=== PATIENT | female | born 1960 | race Caucasian/White ===

== ENCOUNTER 2019-02-01 11:46 | Observation (INO) | payer MEDICAID ==
[2019-02-01 12:53] LABS: BASO % 0.5 % (0.0-2.0); EOS % 0.6 % (0.0-4.0); HEMOGLOBIN 13.3 g/dL (11.0-16.0); LYMPH # 1.7 K/uL (1.0-4.3); MEAN CELL VOLUME 80.4 fL (81.0-99.0); MEAN CORPUSCULAR HGB CONC 33.6 g/dL (33.0-37.0); MEAN PLATELET VOLUME 9.9 fL (7.2-11.7); MONO # 0.4 K/uL (0.0-0.8); MONO % 6.6 % (0.0-10.0); NEUT # 3.5 K/uL (1.8-7.0); NEUT % 62.3 % (50.0-75.0); RBC 4.93 Mil/uL (3.80-5.20); RED CELL DISTRIBUTION WIDTH 14.1 % (11.5-14.5); WHITE BLOOD COUNT 5.6 K/uL (4.8-10.8)
[2019-02-01 13:44] LABS: ALB/GLOB RATIO 1.5 (1.0-2.1); ALBUMIN 4.9 g/dL (3.5-5.0); ALT/SGPT 31 U/L (9-52); AST/SGOT 32 U/L (14-36); BLOOD UREA NITROGEN 22 mg/dL (7-17); CALCIUM 9.7 mg/dl (8.6-10.4); GFR NON-AFRICAN AMERICAN > 60
--- NOTE | 2019-02-01 14:18 | CT ---
Date of service: 02/01/2019 PROCEDURE: CT HEAD WITHOUT CONTRAST. HISTORY: r/o ICH COMPARISON: None available. TECHNIQUE: Axial computed tomography images were obtained through the head/brain without intravenous contrast. Radiation dose: Total exam DLP = 1029.06 mGy-cm. This CT exam was performed using one or more of the following dose reduction techniques: Automated exposure control, adjustment of the mA and/or kV according to patient size, and/or use of iterative reconstruction technique. FINDINGS: HEMORRHAGE: No intracranial hemorrhage. BRAIN: Diffuse atrophy with prominence of the ventricles and sulci noted. No mass effect or edema. Intracranial atherosclerosis. Moderate scattered periventricular and subcortical white matter hypodensities, which are nonspecific, but often seen with chronic microvascular ischemic disease. Chronic appearing tiny left basal ganglia lacunar type infarcts. Please note that MRI with diffusion imaging is more sensitive in the detection of acute ischemic event. VENTRICLES: No hydrocephalus. CALVARIUM: Unremarkable. PARANASAL SINUSES: Unremarkable as visualized. No significant inflammatory changes. MASTOID AIR CELLS: Unremarkable as visualized. No inflammatory changes. OTHER FINDINGS: None. IMPRESSION: Generalized atrophy. Moderate nonspecific white matter changes. Chronic appearing tiny left basal ganglia lacunar type infarcts.
--- NOTE | 2019-02-01 14:35 | RAD ---
Date of service: 02/01/2019 PROCEDURE: CHEST RADIOGRAPH, 1 VIEW HISTORY: r/o infiltrate COMPARISON: None available. FINDINGS: LUNGS: The lungs are well inflated and clear. PLEURA: No pneumothorax or pleural effusion. CARDIOVASCULAR: The heart is normal in size. No aortic atherosclerotic calcifications present. OSSEOUS STRUCTURES: Within normal limits for the patient's age. VISUALIZED UPPER ABDOMEN: Normal. OTHER FINDINGS: None. IMPRESSION: No active pulmonary disease.
--- NOTE | 2019-02-01 14:48 | RAD ---
PROCEDURE: Radiographs of the pelvis and bilateral hips HISTORY: s/p fall - r/o fx COMPARISON: None. TECHNIQUE: 3 views obtained. FINDINGS: BONES: Pelvic ring is intact. There is no acute displaced fracture or bone destruction. Bone alignment is normal. There is diffuse bone demineralization. JOINTS: There is mild degenerative osteoarthrosis in the hip joints with mild reduced joint spaces and marginal spurring. There is mild degenerative osteoarthrosis in the sacroiliac joints. There is mild osteitis pubis. SOFT TISSUES: Normal. OTHER FINDINGS: None. IMPRESSION: No acute displaced fracture or dislocation.Please note occult fractures cannot be excluded on plain radiographs. If there is a persistent clinical concern, an MRI of the hip may be performed for further evaluation.
--- NOTE | 2019-02-01 15:30 | RAD ---
Date of service: 02/01/2019 PROCEDURE: Bilateral Knee Radiographs. HISTORY: s/p fall - r/o fx COMPARISON: None. TECHNIQUE: 6 views obtained. FINDINGS: BONES: Bone alignment and mineralization are normal. There is no acute displaced fracture or bone destruction. JOINTS: There is mild tricompartmental degenerative osteoarthrosis with reduced joint spaces, marginal osteophytes and tibial spiking, worse in the medial compartment. SOFT TISSUES: Periarticular soft tissues are normal. JOINT EFFUSION: There is a small suprapatellar joint effusions OTHER FINDINGS: None. IMPRESSION: No acute displaced fracture or dislocation.
--- NOTE | 2019-02-01 15:34 | CP.PCM.PN ---
Subjective - Date & Time of Evaluation Date of Evaluation: 02/01/19 Time of Evaluation: 15:31 - Subjective Subjective: PGY note for Dr Zendejas's service Patient is a 58 year old female, with PMHx of HTN and type two diabetes mellitus, presents s/p fall on Friday, January 30. [place] translation services were used for this encounter. Patient states she was cleaning the kitchen floor on Friday using a "soap detergent" when she "slipped on the floor" and hit her head. Patient states she "lossed consciousness" for "a few minutes" and was found by a neighbor "who heard the crash when she fell." Patient states she put ice on her head after the fall and took tylenol. She decided to come to the hospital when her headache, dizziness, and knee pain did not go away after two days. She states it has been hard for her to "move the last couple of days due to pain in her right knee." Rates current knee pain as 7-8/10, and headache as 10/10. Patient denies prodrome of palpitations, dizziness, SOB, chest pain before falling. Patient denies history of mechanical falls, or gait dysfunction. Denies any current chest pain, SOB, palpitations. PMD: Cristiana PSHx: denies Allergies: denies Meds: Bisoprolol/HCTZ 5/6.25mg PO daily, Glyburide/Metformin 5/500mg PO Daily PMHx: HTN, T2DM Fam Hx: non-contributory Objective - Vital Signs/Intake and Output Vital Signs (last 24 hours): Temp Pulse Resp BP Pulse Ox 98.0 F 80 18 175/97 H 100 02/01/19 11:57 02/01/19 12:41 02/01/19 11:57 02/01/19 12:41 02/01/19 11:57 - Labs Labs: 02/01/19 12:48 02/01/19 13:10 - Constitutional Appears: Non-toxic, No Acute Distress - Head Exam Head Exam: absent: ATRAUMATIC, NORMAL INSPECTION Additional comments: Patient with hematoma on occipital region of head - Eye Exam Eye Exam: EOMI. absent: Conjunctival injection, Nystagmus, Periorbital swelling, Scleral icterus Pupil Exam: NORMAL ACCOMODATION, PERRL. absent: Fixed, Miosis - ENT Exam ENT Exam: Mucous Membranes Moist - Neck Exam Neck Exam: Full ROM, Tenderness (Full ROM; spurling negative). absent: Lymphadenopathy - Respiratory Exam Respiratory Exam: Clear to Ausculation Bilateral, NORMAL BREATHING PATTERN - Cardiovascular Exam Cardiovascular Exam: REGULAR RHYTHM, +S1, +S2 - GI/Abdominal Exam GI & Abdominal Exam: Soft, Normal Bowel Sounds. absent: Tenderness - Extremities Exam Extremities Exam: Joint Swelling (mild jt deformity (OA) b/l knees), Tenderness (bilateral knees - crepitus, TTP). absent: Normal Inspection, Pedal Edema Additional comments: ecchymosis on right lower extremity (rt knee) patient favors right knee during gait - Back Exam Back Exam: absent: CVA tenderness (L), CVA tenderness (R) Additional comments: no bruising appreciated - Neurological Exam Neurological Exam: Alert, Awake, Oriented x3 Neuro motor strength exam: Left Upper Extremity: 5, Right Upper Extremity: 5, Left Lower Extremity: 5, Right Lower Extremity: 5 Additional comments: Finger to nose intact but slowed (perhaps due to translation service) Romberg negative MS 5/5 globally Light intact globally through all dermatomes - Psychiatric Exam Psychiatric exam: Normal Affect, Normal Mood - Skin Skin Exam: Normal Color, Warm Assessment and Plan - Assessment and Plan (Free Text) Plan: S/p fall; Loss of consciousness; Concussion Observe on tele for [address] Head (02/01/19): Generalized atrophy. Moderate non-specific white matter changes. Chronic left basal ganglia lacunar infarcts. CXR (02/01/19): NAD EKG (02/01/19): NSR @ 81 bpm; Left axis deviation; LVH; No acute ST/T wave changes Initial troponin negative; f/u 2 additional Q6H f/u UA, urinalysis, TSH Meclizine Q6H prn for dizziness Tylenol 650mg PO Q6h for mild pain Motrin 600mg PO Q6h for moderate pain Lower Extremity pain, S/p fall Hip/Pelvis XRay (02/01/19): No acute displaced fracture or dislocation noted. Osteoarthirtis noted in hip and SI jts. Knee xray, bilateral (02/01/19): No acute displaced fracture or dislocation noted. Osteoarthirtis noted in bilateral knees. HTN Urgency On admission: >215/125 Continue home meds: Bisoprolol 5mg PO Daily HCTZ 12.5 mg PO Daily Stat Amlodipine 5mg, will consider increasing patient meds after pain component ruled out Type II, DM Glyburide 5mg PO Daily Metformin 500mg PO Daily Hypoglycemia protocol Accuchecks ACHS f/u A1c, lipid panel Osteoarthritis Found on Hip and knee xrays above Bone demineralization Found on pelvis xray above, will need DEXA scan as outpatient if she has not already had Recommend Vit D/Calcium per USPSTF guidelines PPX Heparin 5000u Q12H ASA 81mg PO Daily GI not indicated SCDs Disposition: From pt history it sounds like patient had concussion after hitting head on Friday. Will monitor overnight, along with pt BP. Xrays show no acute fracture, but will certainly treat patient pain. Raza Bill, PGY-3 D/w attending Dr. Zendejas
[2019-02-01] MEDS ORDERED: Dextrose 50% SYRINGE Inj (50 ml) IV PRN (16:58)
[2019-02-01] MEDS ORDERED: Glucagon Recombinant 1 mg Inj IM PRN (16:58)
--- NOTE | 2019-02-01 17:22 | C.PDOC ---
History Of Present Illness 58-year-old female presents to the ED for evaluation of dizziness and syncope which occurred yesterday. Patient states that as she was walking, she became very dizzy and then fell. She admits to loss of consciousness and is currently complaining of bilateral hip and knee pain. Patient denies chest pain, shortness of breath, nausea, vomiting. Chief Complaint (Nursing): Dizziness/Lightheaded History Per: Patient History/Exam Limitations: no limitations Onset/Duration Of Symptoms: Hrs Current Symptoms Are (Timing): Still Present Number Of Syncopal Episodes: 1 Activity At Onset Of Symptoms: Walking Associated Symptoms Preceding Syncopal Episode: No Predromal Symptoms (Sudden Onset) Past Medical History Reviewed: Historical Data, Nursing Documentation, Vital Signs Vital Signs: Last Vital Signs Temp 98.0 F 02/01/19 11:57 Pulse 75 02/01/19 16:16 Resp 20 02/01/19 16:16 BP 155/98 H 02/01/19 17:00 Pulse Ox 100 02/01/19 16:16 - Medical History PMH: HTN Surgical History: No Surg Hx Family History: States: Unknown Family Hx - Social History Hx Alcohol Use: No Hx Substance Use: No - Immunization History Hx Tetanus Toxoid Vaccination: No Hx Influenza Vaccination: No Hx Pneumococcal Vaccination: No Review Of Systems Cardiovascular: Negative for: Chest Pain Respiratory: Negative for: Shortness of Breath Gastrointestinal: Negative for: Nausea, Vomiting Musculoskeletal: Positive for: Other (bilateral hip and knee pain ) Neurological: Positive for: Dizziness, Other (syncope) Physical Exam - Physical Exam Appears: Non-toxic, No Acute Distress Skin: Normal Color, Warm, Dry Head: Atraumatic, Normacephalic Eye(s): bilateral: Normal Inspection Oral Mucosa: Moist Neck: Supple Chest: Symmetrical, No Deformity, No Tenderness Cardiovascular: Rhythm Regular, No Murmur Respiratory: Normal Breath Sounds, No Rales, No Rhonchi, No Wheezing Gastrointestinal/Abdominal: Soft, No Tenderness Extremity: Normal ROM, Capillary Refill (less than 2 seconds ) Neurological/Psych: Oriented x3, Normal Speech, Normal Cognition ED Course And Treatment - Laboratory Results Result Diagrams: 02/01/19 12:48 02/01/19 13:10 Lab Results: Troponin I < 0.0120 ng/mL (0.00-0.120) 02/01/19 13:10 Total Bilirubin 0.7 mg/dL (0.2-1.3) 02/01/19 13:10 AST 32 U/L (14-36) 02/01/19 13:10 ALT 31 U/L (9-52) 02/01/19 13:10 Alkaline Phosphatase 58 U/L (38-126) 02/01/19 13:10 Total Protein 8.3 g/dL (6.3-8.3) 02/01/19 13:10 Albumin 4.9 g/dL (3.5-5.0) 02/01/19 13:10 Globulin 3.3 gm/dL (2.2-3.9) 02/01/19 13:10 Albumin/Globulin Ratio 1.5 (1.0-2.1) 02/01/19 13:10 ECG: Interpreted By Me, Viewed By Me ECG Rhythm: Sinus Rhythm Interpretation Of ECG: Normal Sinus Rhythm at rate 81bpm. Left axis deviation. Rate From EC O2 Sat by Pulse Oximetry: 100 (on RA) Pulse Ox Interpretation: Normal - Other Rad bilateral knee XR X-Ray: Viewed By Me, Read By Radiologist Interpretation: Date of service: 02/01/2019. PROCEDURE: Bilateral Knee Radiographs. HISTORY: s/p fall - r/o fx. COMPARISON: None. TECHNIQUE: 6 views obtained. FINDINGS: BONES: Bone alignment and mineralization are nor mal. There is no acute displaced fracture or bone destruction. JOINTS: There is mild tricompartmental degenerative osteoarthrosis with reduced joint spaces, marginal osteophytes and tibial spiking, worse in the medial compartment. SOFT TISSUES: Periarticular soft tissues are normal. JOINT EFFUSION: There is a small suprapatellar joint effusions. OTHER FINDINGS: None. IMPRESSION: No acute displaced fracture or dislocation. hip/pelvis XR X-Ray: Viewed By Me, Read By Radiologist Interpretation: PROCEDURE: Radiographs of the pelvis and bilateral hips. HISTORY: s/p fall - r/o fx. COMPARISON: None. TECHNIQUE: 3 views obtained. FINDINGS: BONES: Pelvic ring is intact. There is no acute displaced fracture or bone destruction. Bone alignment is normal. There is diffuse bone demineralization. JOINTS: There is mild degenerative osteoarthrosis in the hip joints with mild reduced joint spaces and marginal spurring. There is mild degenerative osteoarthrosis in the sacroiliac joints. There is mild osteitis pubis. SOFT TISSUES: Normal. OTHER FINDINGS: None. IMPRESSION: No acute displaced fracture or dislocation.Please note occult fractures cannot be excluded on plain radiographs. If there is a persistent clinical concern, an MRI of the hip may be performed for further evaluation. CXR X-Ray: Viewed By Me, Read By Radiologist Interpretation: Date of service: 02/01/2019. PROCEDURE: CHEST RADIOGRAPH, 1 VIEW. HISTORY: r/o infiltrate. COMPARISON: None available. FINDINGS: LUNGS: The lungs are well inflated and clear. PLEURA: No pneumothorax or pleural effusion. CARDIOVASCULAR: The heart is normal in size. No aortic atherosclerotic calcifications present. OSSEOUS STRUCTURES: Within normal limits for the patient's age. VISUALIZED UPPER ABDOMEN: Normal. OTHER FINDINGS: None. IMPRESSION: No active pulmonary disease. - CT Scan/US CT Head Other Rad Studies (CT/US): Read By Radiologist, Radiology Report Reviewed CT/US Interpretation: Date of service: 02/01/2019. PROCEDURE: CT HEAD WITHOUT CONTRAST. HISTORY: r/o ICH. COMPARISON: None available. TECHNIQUE: Axial computed tomography images were obtained through the head/brain without in travenous contrast. Radiation dose: Total exam DLP = 1029.06 mGy-cm. This CT exam was performed using one or more of the following dose reduction techniques: Automated exposure control, adjustment of the mA and/or kV according to patient size, and/or use of iterative reconstruction technique. FINDINGS: HEMORRHAGE: No intracranial hemorrhage. BRAIN: Diffuse atrophy with prominence of the ve ntricles and sulci noted. No mass effect or edema. Intracranial atherosclerosis. Moderate scattered periventricular and subcortical white matter hypodensities, which are nonspecific, but often seen with chronic microvascular ischemic disease. Chronic appearing tiny left basal ganglia lacunar type infarcts. Please note that MRI with diffusion imaging is more sensitive in the detection of acute ischemic event. VENTRICLES: No hydrocephalus. CALVARIUM: Unremarkable. PARANASAL SINUSES: Unremarkable as visualized. No significant inflammatory changes. MASTOID AIR CELLS: Unremarkable as visualized. No inflammatory changes. OTHER FINDINGS: None. IMPRESSION: Generalized atrophy. Moderate nonspecific white matter changes. Chronic appearing tiny left basal ganglia lacunar type infarcts. Medical Decision Making Medical Decision Making: Progress: Bloodwork, urinalysis, CT Head, CXR, Knee XR, Hip/Pelvis XR, and EKG ordered and reviewed. Case discussed with Dr. Curry, who accepts the patient for admission to Tele- Obs. Disposition - Disposition Disposition Time: 15:20 Condition: STABLE Forms: [facility] (Irish) - Clinical Impression Clinical Impression: Syncope, Hypertension - Scribe Statement The provider has reviewed the documentation as recorded by the Scribe (Ale Pablo) Provider Attestation: All medical record entries made by the Scribe were at my direction and personally dictated by me. I have reviewed the chart and agree that the record accurately reflects my personal performance of the history, physical exam, medical decision making, and the department course for this patient. I have also personally directed, reviewed, and agree with the discharge instructions and disposition.
[2019-02-01 19:28] LABS: CK-MB 2.73 ng/mL (0.0-3.38)
[2019-02-01 21:57] VITALS: RESP 20
[2019-02-02 01:50] LABS: CK-MB 2.55 ng/mL (0.0-3.38)
[2019-02-02 06:29] LABS: BASO % 0.6 % (0.0-2.0); HEMOGLOBIN 13.2 g/dL (11.0-16.0); LYMPH # 1.8 K/uL (1.0-4.3); LYMPH % 40.7 % (20.0-40.0); MEAN CELL VOLUME 80.4 fL (81.0-99.0); MEAN CORPUSCULAR HEMOGLOBIN 26.6 pg (27.0-31.0); MEAN PLATELET VOLUME 9.5 fL (7.2-11.7); MONO # 0.3 K/uL (0.0-0.8); MONO % 7.1 % (0.0-10.0); NEUT # 2.2 K/uL (1.8-7.0); NEUT % 50.6 % (50.0-75.0); NRBC % 0.1 % (0.0-2.0); RBC 4.96 Mil/uL (3.80-5.20); RED CELL DISTRIBUTION WIDTH 14.1 % (11.5-14.5); WHITE BLOOD COUNT 4.4 K/uL (4.8-10.8)
[2019-02-02 06:58] LABS: BLOOD UREA NITROGEN 18 mg/dL (7-17); CALCIUM 9.8 mg/dl (8.6-10.4); GFR NON-AFRICAN AMERICAN > 60; HDL CHOLESTEROL 43 mg/dL (30-70)
[2019-02-02 07:08] LABS: LDL CHOLESTEROL 123 mg/dL (0-129)
[2019-02-02 07:25] LABS: SQUAMOUS EPITHIAL 1 /hpf (0-5); URINE BILIRUBIN NEGATIVE (NEGATIVE); URINE BLOOD NEGATIVE (NEGATIVE); URINE CALCIUM OXALATE CRYSTALS MANY /hpf (<OCC); URINE CLARITY Hazy (Clear); URINE COLOR Yellow (YELLOW); URINE GLUCOSE (UA) NORMAL (Normal); URINE LEUKOCYTE ESTERASE NEG Leu/uL (Negative); URINE PROTEIN 1+ mg/dL (NEGATIVE); URINE UROBILINOGEN NORMAL mg/dL (0.2-1.0)
--- NOTE | 2019-02-02 09:29 | CP.PCM.PN ---
Subjective - Date & Time of Evaluation Date of Evaluation: 02/02/19 Time of Evaluation: 09:15 - Subjective Subjective: Medicine progress note (Dr. Zendejas's service) [employer] Former: Jennie, [id number] Patient was seen and examined at bedside as she was resting in bed. Patient denies any acute issues or new complaint. Patient still admits to mild occipital headache and dizziness. Patient denies any symptoms of chest pain, palpitations, shortness of breath, nausea and vomiting. Objective - Vital Signs/Intake and Output Vital Signs (last 24 hours): Temp Pulse Resp BP Pulse Ox 98 F 68 20 150/91 H 97 02/02/19 07:00 02/02/19 07:00 02/02/19 07:00 02/02/19 07:00 02/02/19 07:00 - Medications Medications: Current Medications Acetaminophen (Tylenol 325mg Tab) 650 mg PO Q6H PRN PRN Reason: Pain, Mild (1-3) Aspirin (Ecotrin) 81 mg PO DAILY [facility] Bisoprolol Fumarate (Zebeta) 5 mg PO DAILY [facility] Calcium/Vitamin D (Oyster Shell Calcium/Vitamin D 500 Mg-200 Iu) 1 tab PO DAILY [facility] Dextrose (Dextrose 50% Inj) 0 ml IV STAT PRN; Protocol PRN Reason: Hypoglycemia Protocol Dextrose (Glutose 15) 0 gm PO ONCE PRN; Protocol PRN Reason: Hypoglycemia Protocol Glucagon (Glucagen Diagnostic Kit) 0 mg IM STAT PRN; Protocol PRN Reason: Hypoglycemia Protocol Glyburide (Micronase) 5 mg PO QAM [facility] Heparin Sodium (Porcine) (Heparin) 5,000 units SC Q12H [facility] Last Admin: 02/02/19 08:12 Dose: 5,000 units Hydrochlorothiazide (Microzide) 12.5 mg PO DAILY [facility] Dextrose (Dextrose 5% In Water 1000 Ml) 1,000 mls @ 0 mls/hr IV .Q0M PRN; Protocol PRN Reason: Hypoglycemia Protocol Ibuprofen (Motrin Tab) 600 mg PO Q6H PRN PRN Reason: Pain, moderate (4-7) Last Admin: 02/01/19 21:42 Dose: 600 mg Meclizine HCl (Antivert) 25 mg PO Q6H PRN PRN Reason: Dizziness Metformin HCl (Glucophage) 500 mg PO DAILY [facility] - Labs Labs: 02/02/19 06:23 04/30/19 06:23 - Constitutional Appears: Non-toxic, No Acute Distress - Head Exam Head Exam: ATRAUMATIC, NORMAL INSPECTION - Eye Exam Eye Exam: EOMI, Normal appearance - ENT Exam ENT Exam: Mucous Membranes Moist - Respiratory Exam Respiratory Exam: Clear to Ausculation Bilateral, NORMAL BREATHING PATTERN. absent: Decreased Breath Sounds, Prolonged Expiratory Phase, Rhonchi, Wheezes, Respiratory Distress - Cardiovascular Exam Cardiovascular Exam: REGULAR RHYTHM, +S1, +S2. absent: Bradycardia, Tachycardia, Murmur - GI/Abdominal Exam GI & Abdominal Exam: Soft, Normal Bowel Sounds. absent: Distended, Guarding, Rigid, Tenderness - Extremities Exam Extremities Exam: Normal Capillary Refill, Normal Inspection. absent: Calf Tenderness, Pedal Edema - Back Exam Back Exam: NORMAL INSPECTION. absent: CVA tenderness (L), CVA tenderness (R) - Neurological Exam Neurological Exam: Alert, Awake, Oriented x3. absent: Motor Sensory Deficit Neuro motor strength exam: Left Upper Extremity: 5, Right Upper Extremity: 5, Left Lower Extremity: 5, Right Lower Extremity: 5 - Psychiatric Exam Psychiatric exam: Normal Affect, Normal Mood - Skin Skin Exam: Normal Color Assessment and Plan (1) Status post fall Assessment & Plan: Mechanical fall With loss of conciousness Imaging: Head CT without contrast: No intracranial hemorrhage. Generalized atrophy. Moderate non-specific white matter changes. Chronic left basal ganglia lacunar infarcts. Chest X-ray: No active pulmonary disease Hip/Pelvis X-ray: No acute displaced fracture or dislocation.Please note occult fractures cannot be excluded on plain radiographs Knee X-ray: Bone alignment and mineralization are normal. There is no acute displaced fracture or bone destruction. There is mild tricompartmental degenerative osteoarthrosis with reduced joint spaces, marginal osteophytes and tibial spiking, worse in the medial compartment. Medication: * Tylenol 650mg PO Q6H PRN (Mild pain) * Motrin 600mg PO Q6H PRN (Moderate pain) * PT Status: Acute (2) Hypertension Assessment & Plan: Uncontrolled Medications: * Zebeta 5mg PO QD * HCTZ increased from 12.5mg PO daily to 25mg PO daily Continue to monitor vital sign Q4H Status: Acute (3) Diabetes mellitus Assessment & Plan: HgbA1C (02/02/19): 7.1 Accuchecks Glyburide 5mg PO QD Metformin 500mg PO daily ASA 81mg PO daily Hypoglycemia protocol Status: Acute (4) Osteoporosis Assessment & Plan: Calcium /Vitamin D 1 Tab PO daily Status: Acute (5) Elevated TSH Assessment & Plan: Asymptomatic TSH: 5.22 -Outpatient follow up Status: Acute (6) Dizziness Assessment & Plan: Meclizine 25mg PO Q6H PRN Status: Acute (7) Prophylactic measure Assessment & Plan: DVT: Heparin 5,000 units SC Q12H PT Disposition: Please discharge patient home as per Dr. Zendejas Please follow up with your primary care physician, Dr. Zendejas in 1 week Please resume all your home medications: - Meclizine 25mg PO every 6 hours only as needed for symptoms of dizziness - Bisprolol 5mg PO; I tablet by mouth daily at 8:00am - Microzide (Hydrochlorothiazide 12.5mg) 1 tablet by mouth daily at 8:00am - Glucovance 5/500mg I tablet by mouth daily at 8:00am - Aspirin 81mg PO, 1 tablet by mouth daily at 8:00am - Calcium/Vitamin D, 1 tablet by mouth daily at 8:00am - Motrin 600mg PO every 6 hours only as needed for pain control Please follow up with your thyroid hormone levels within [address] Zendejas Please return to the hospital if symptoms resume Please take care All plans and management discussed with Dr. Zendejas Status: Acute
[2019-02-02] MEDS ORDERED: Calcium-Vit D 500 mg-200 Units Tab UD PO SCH (10:00)
[2019-02-02 11:44] VITALS: BP 157/82; PULSE 71; TEMP 98.5; O2SAT 95
--- NOTE | 2019-02-02 12:41 | CARD ---
APPROVED REPORT Date of service: 02/01/2019 EKG Measurement Heart [id number] <Conclusion> Normal sinus rhythm Possible Left atrial enlargement Left axis deviation Left ventricular hypertrophy with repolarization abnormality Cannot rule out Septal infarct, age undetermined Abnormal ECG
[2019-02-02] MEDS ORDERED: Potassium Chloride 20 mEq ER Tab PO ONE (15:45)
== END 2019-02-02 16:26 | disposition home or self-care (01) ==
LOC: C.ER 11:46 → C.9E 16:09 → C.6T 20:16
PROVIDERS: ADMIT Internal Medicine Pulmonary Disease; ATTEND Internal Medicine Pulmonary Disease
DX: S06.0X1A Concussion with loss of consciousness of 30 minutes or less, initial encounter (principal); I16.0 Hypertensive urgency; E11.9 Type 2 diabetes mellitus without complications; W01.0XXA Fall on same level from slipping, tripping and stumbling without subsequent striking against object, initial encounter; M17.0 Bilateral primary osteoarthritis of knee; M16.0 Bilateral primary osteoarthritis of hip
CPT/HCPCS: 36415; 70450; 71045; 73521; 73562; 80048; 80053; 80061; 81001; 82948; 83036; 83735; 84100; 84439; 84443; 84484; 85025; 87086; 93005; 97116; 97162; 99285; G0378; G8978; G8979; J1644